=== PATIENT | female | born 1980 | race Two or more races ===

== ENCOUNTER 2016-12-21 10:10 | Emergency (ER) | payer OTHER ==
[2016-12-21 10:30] VITALS: BP 145/53; PULSE 67; TEMP 98.8; BMI 26.4
[2016-12-21 12:04] LABS: BASOPHIL 0.4 % (0-2.0); EOSINOPHIL 1.8 % (0-4.5); MCH 27.4 pg (25.7-33.7); MEAN CELL VOLUME 83.1 fl (80-96); MEAN PLT VOLUME 7.2 fl (7.5-11.1); NEUTROPHILS 64.5 % (42.8-82.8); PLATELET COUNT 335 K/MM3 (134-434); RDW 14.1 % (11.6-15.6); WHITE BLOOD COUNT 11.1 K/mm3 (4.0-10.0)
--- NOTE | 2016-12-21 12:10 | PDOC ---
History of Present Illness - General Chief Complaint: Headache Stated Complaint: HEADACHE Time Seen by Provider: 12/21/16 11:26 History Source: Patient, [employer] Par[employer] Used ([employer] [id number]) Exam Limitations: Language Barrier - History of Present Illness Initial Comments: 12/21/16 12:06 36 yr female with history of headache for 4 months and diffuculty reading close up. Pt denies fever or chills, no foreign travel. Pt has an order for ahead CT however she is unable to get appointment with a neurologist . Pt denies nausea or vomiting no photophobia. Timing/Duration: reports: waxing and waning Severity: Yes: mild Episode Description: right sided occiptal Associated Symptoms: reports: denies symptoms Past History - Past Medical History Allergies/Adverse Reactions: Allergies Allergy/AdvReac Type Severity Reaction Status Date / Time No Known Allergies Allergy Verified 12/21/16 10:21 Home Medications: Ambulatory Orders Naproxen [Naprosyn -] 500 mg PO BID PRN #14 tablet 12/21/16 Other medical history: denies - Suicide/Smoking/Psychosocial Hx Smoking History: Never smoked Information on smoking cessation initiated: No Hx Alcohol Use: No Drug/Substance Use Hx: No Substance Use Type: None Neuro Specific PMHX - Complaint Specific PMHX Glaucoma: No Herniated Disk: No Laminectomy: No Migraine: No Multiple Sclerosis: No Neuropathy: No TIA: No Review of Systems - Review of Systems Able to Perform ROS?: Yes Is the patient limited Upper Sorbian proficient: No Constitutional: No: Symptoms Reported HEENTM: No: Symptoms Reported Respiratory: No: Symptoms reported Cardiac (ROS): No: Symptoms Reported ABD/GI: No: Symptoms Reported : No: Symptoms Reported Musculoskeletal: Yes: Symptoms Reported Integumentary: No: Symptoms Reported Neurological: No: Symptoms reported *Physical Exam - Vital Signs Last Vital Signs Temp Pulse Resp BP Pulse Ox 98.8 F 67 18 145/53 100 12/21/16 10:18 12/21/16 10:18 12/21/16 10:18 12/21/16 10:18 12/21/16 11:28 - Physical Exam General Appearance: Yes: Nourished, Appropriately Dressed HEENT: positive: EOMI, KYLE, TMs Normal, Pharynx Normal Neck: positive: Supple Respiratory/Chest: positive: Lungs Clear, Normal Breath Sounds Cardiovascular: positive: Regular Rhythm, Regular Rate Gastrointestinal/Abdominal: positive: Normal Bowel Sounds, Soft Musculoskeletal: positive: Normal Inspection Extremity: positive: Normal Capillary Refill, Normal Inspection, Normal Range of Motion Integumentary: positive: Normal Color, Dry, Warm Neurologic: positive: Fully Oriented, Alert, Normal Mood/Affect, Normal Response , Motor Strength 5/5 ED Treatment Course - LABORATORY CBC & Chemistry Diagram: 12/21/16 11:52 12/21/16 11:52 Medical Decision Making - Medical Decision Making 12/21/16 12:09 cc: headache for 4 months no fever no chills will check labs, get head ct 12/21/16 14:[address] are withing normal limits, lyme is pending , I have discussed via abstract writer that pt must follow up with the neurologist. pt understands and agrees with the plan. all questions have been asked and answered. *DC/Admit/Observation/Transfer Diagnosis at time of Disposition: Headache Qualifiers: Headache type: tension-type Headache chronicity pattern: acute headache Intractability: not intractable Qualified Code(s): G44.209 - Tension-type headache, unspecified, not intractable - Discharge Dispostion Disposition: HOME Condition at time of disposition: Good - Prescriptions Prescriptions: Naproxen [Naprosyn -] 500 mg PO BID PRN #14 tablet PRN Reason: Headache - Referrals Referrals: Tyrese Rucker MD [Staff Physician] - - Patient Instructions Additional Instructions: please follow up with the neurologist or the neurologist you have been referred to please follow with the opthomologist for an eye exam take naprosyn for headache as needed drink at least 2 liters of water a day return if worse the cat scan done today is normal por favor, alonzo un seguimiento con el neurlogo o el neurlogo al que bill sido referido por favor, siga con el optomlogo para un examen de los ojos lashae naprosyn para el dolor de isma segn sea necesario beber al menos 2 litros de agua al da volver si es peor el examen de onel realizado hoy es normal Print Language: ENGLISH
[2016-12-21 12:29] LABS: ALBUMIN 4.1 g/dl (3.4-5.0); ALK PHOS 77 U/L (45-117); ANION GAP 9 (8-16); BILIRUBIN,TOTAL 0.3 mg/dL (0.2-1.0); C-REACTIVE PROTEIN 0.4 MG/DL (0.00-0.3); CALCIUM 9.7 mg/dL (8.5-10.1); CO2 27 mmol/L (21-32); CREATININE 0.5 mg/dL (0.55-1.02); GLUCOSE,RANDOM 79 mg/dL (74-106); SGOT/AST 19 U/L (15-37); SGPT/ALT 24 U/L (12-78); TOT PROT 8.4 g/dl (6.4-8.2)
[2016-12-21] MEDS ORDERED: NAPROXEN 500 MG TABLET (FP) PO ONE (13:36)
[2016-12-21] MEDS ORDERED: NAPROXEN 500 MG TABLET (FP) ONE (13:38)
== END 2016-12-21 14:15 | disposition home or self-care (01) ==
LOC: JERFT 10:10
DX: G44.209 Tension-type headache, unspecified, not intractable (principal)
CPT/HCPCS: 36415; 70450-TC; 80053; 84703; 85025; 86140; 86618; 99281-25